=== PATIENT | female | born 1995 | race Caucasian/White ===

== ENCOUNTER → 2018-03-04 | Outpatient (CLI) | payer OTHER ==
[~2018-03-04] MED LIST: CEPH500 PO; DIPH50 PO; Hair, Skin & N1 EACH PO; IBUP800 PO; PERM5TC TOP; PRED10 PO; RXSULTRIDS PO; SULTRIDS PO; Verotin-Gr Cap1 EACH PO
== END | disposition home or self-care (01) ==
LOC: LAB EV 15:55 → LAB SHORT 15:55
DX: N12 Tubulo-interstitial nephritis, not specified as acute or chronic (principal)
CPT/HCPCS: 87077; 87086; 87186

== ENCOUNTER 2018-04-15 01:56 | Emergency (ER) | payer OTHER ==
[~2018-04-15] VITALS: Ht 160 cm; Wt 63.5 kg
[2018-04-15 02:30] LABS: Source, Urine Clean Catch
[2018-04-15 02:43] LABS: Bilirubin, Urine Neg (Neg); Blood, Urine 5+ (Neg); Glucose Qualitative, Urine Neg (Neg); Ketones, Urine Neg (Neg); Leukocyte Esterase, Urine 3+ (Neg); Nitrite, Urine Neg (Neg); Protein, Urine 3+ (Neg); Specific Gravity, Urine 1.025 (1.003-1.022); Urobilinogen, Urine 2+ (Normal)
[2018-04-15 02:48] LABS: Appearance, Urine Cloudy (Clear); Color, Urine Yellow (P-Yellow)
[2018-04-15 02:50] LABS: Amorphous Mod (0-Heavy); Bacteria Many /hpf; Red Blood Cells, Urine 0-2 /hpf (0-2); Squamous Epithelial Cells Mod /hpf (Few); White Blood Cells, Urine 50-100 /hpf (0-5)
[2018-04-15] MEDS ORDERED: CEPH500 PO (03:46)
== END 2018-04-15 03:55 | disposition home or self-care (01) ==
LOC: ER 01:56
PROVIDERS: Emergency Medicine
DX: N12 Tubulo-interstitial nephritis, not specified as acute or chronic (principal); R55 Syncope and collapse; F17.210 Nicotine dependence, cigarettes, uncomplicated; Z79.899 Other long term (current) drug therapy
CPT/HCPCS: 81001; 81025; 87077; 87086; 87186; 93005; 93010; 99284-25

== ENCOUNTER 2019-05-27 14:54 | Emergency (ER) | payer OTHER ==
[~2019-05-27] VITALS: Ht 157.5 cm; Wt 68.0 kg
== END 2019-05-27 15:09 | disposition home or self-care (01) ==
LOC: ER 14:54
DX: R11.2 Nausea with vomiting, unspecified (principal)
CPT/HCPCS: 99281

== ENCOUNTER 2019-09-25 06:24 | Day surgery (SDC) | payer OTHER ==
[~2019-09-25] VITALS: Ht 157.5 cm; Wt 67.1 kg
[~2019-09-25 06:24] MED LIST changes: +DOXYLAMINE-PYR1 EAC1 PO; +PRENATAL TABLE1 EAC2 PO; +PROM25 PO
--- NOTE | 2019-09-25 07:12 | NUR ---
Ambulatory in Day Surgery History, Chart, Medications and Allergies reviewed before start of procedure. Lungs clear T/O to Auscultation. Patient confirms NPO status and agrees with scheduled surgery. Pre-Op teaching done. Pt verbalizes understanding.
--- NOTE | 2019-09-25 07:15 | NUR ---
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 SEE PROGRESS NOTE FOR INFORMATION.
--- NOTE | 2019-09-25 11:35 | NUR ---
PT UP TO BATHROOM WITH SBA; TOLERATED WELL.
--- NOTE | 2019-09-25 11:52 | NUR ---
Patient up to Ambulate independently. Gait steady. Dressing to procedure site clean, dry, intact with no visible drainage, swelling, erythema or bruising noted. X3 sites. Discharge instructions reviewed with patient. Patient verbalizes understanding. Copy given to patient to take home. Patient States Post-Procedure ride home has been arranged. Discharged via wheelchair to private car for ride home.
--- NOTE | 2019-09-27 10:19 | NUR ---
09/27/19 1019 Lilliana Simmons VERIFICATIONS: EDIT CHART.
== END 2019-09-25 11:44 | disposition home or self-care (01) ==
LOC: ORSCMMR 06:24 → ORD 07:30 → ORSCMMR 07:30
PROVIDERS: Surgery
PROC: BF121ZZ Fluoroscopy of Gallbladder using Low Osmolar Contrast (ICD-10-PCS; principal; 2019-09-25 07:30)
PROC: 0FT44ZZ Resection of Gallbladder, Percutaneous Endoscopic Approach (ICD-10-PCS; principal; 2019-09-25 07:30)
DX: K80.12 Calculus of gallbladder with acute and chronic cholecystitis without obstruction (principal); Z34.81 Encounter for supervision of other normal pregnancy, first trimester
CPT/HCPCS: 88304; C1894; J0690; J1100; J2270; J2405; J2704; J3010; J7120

== ENCOUNTER 2020-04-03 07:25 | Inpatient (IN) | payer OTHER ==
[~2020-04-03] VITALS: Ht 157.5 cm; Wt 81.1 kg
[2020-04-03 08:08] LABS: BASOPHILS ABSOLUTE AUTO 0.06 K/mm3 (0.00-0.23); BASOPHILS PERCENT AUTO 0 % (0-2); EOSINOPHILS ABSOLUTE AUTO 0.07 K/mm3 (0.00-0.68); EOSINOPHILS PERCENT AUTO 0 % (0-6); Hemoglobin 12.3 g/dL (11.5-16.0); IMMATURE GRAN ABSOLUTE AUTO 0.46 K/mm3 (0.00-0.10); IMMATURE GRAN PERCENT AUTO 3 % (0-1); LYMPHOCYTES ABSOLUTE AUTO 4.01 K/mm3 (0.84-5.20); LYMPHOCYTES PERCENT AUTO 25 % (21-46); MONOCYTES ABSOLUTE AUTO 0.95 K/mm3 (0.16-1.47); MONOCYTES PERCENT AUTO 6 % (4-13); Mean Corpuscular HGB 31.2 pg (26.0-34.0); Mean Corpuscular HGB Conc 33.2 g/dL (31.5-36.5); Mean Corpuscular Volume 94 fL (80-100); Mean Platelet Volume 11.9 fL (9.1-12.4); NEUTROPHILS ABSOLUTE AUTO 10.32 K/mm3 (1.96-9.15); NEUTROPHILS PERCENT AUTO 65 % (41-73); NRBC ABSOLUTE 0.02 K/mm3 (0.00-0.02); NRBC Auto 0.1 /100 WBC (0.0-0.2); Platelet Count 218 K/mm3 (150-400); RDW Coefficient Variation 13.2 % (11.7-14.2); RDW Standard Deviation 44.9 fL (35.1-46.3); Red Blood Cell Count 3.94 M/mm3 (3.80-5.20); White Blood Cell Count 15.87 K/mm3 (4.00-11.30)
[2020-04-03 08:43] LABS: Influenza A, PCR Negative (NEGATIVE); Influenza B, PCR Negative (NEGATIVE); Resp Syncytial Virus, PCR Negative (NEGATIVE); SARS-Cov-2 (COVID-19) PCR, MMC Negative (NEGATIVE)
[2020-04-03 09:03] LABS: U Amphetamine Screen Not Detected; U Barbituate Screen Not Detected; U Benzodiazapine Screen Not Detected; U Buprenorphine Screen Not Detected; U Cannabinoids Screen DETECTED; U Cocaine Screen Not Detected; U Methadone Screen Not Detected; U Methamphetamine Screen Not Detected; U Opiates Screen Not Detected; U Oxycodone Screen Not Detected; U Phencyclidine Screen Not Detected; U Propoxyphene Screen Not Detected
--- NOTE | 2020-04-03 14:24 | NUR ---
PT TO SCN TO SEE NB
--- NOTE | 2020-04-03 17:44 | NUR ---
DISCHARGE INSTRUCTIONS REVIEWED AND SIGNED. DISCHARGE PAPER WORK COMPLETE. PT TO BE DISCHARGED R/T INFANT BEING TRANSPORTED TO [place]. ALL QUESTIONS ANSWERED.
--- NOTE | 2020-04-07 11:16 | NUR ---
PPFU. PT UNABLE TO COME IN FOR PPFU, DONE OVER THE PHONE. PT STATES THAT HER MILK IS IN AND SHE BOTH BREAST AND BOTTLE FEEDING NB. VAGINAL BLEEDING IS GETTING WILLOW WORKER AND IS PINK IN COLOR. DENIES HAVING ANY SWELLING IN HER EXTREMITIES. DENIES HEADACHE, BLURRED VISION, OR DIZINESS. DENIES NUMBNESS OR TINGLING IN HER LEGS AND FEET. PT HAS BEEN TAKING TYLENOL FOR PAIN AND STATES THIS HAS BEEN WORKING FOR HER PAIN. PT STATES SHE IS CALLING TO MAKE MD F/U APPOINTMENTS NEXT. FURTHER LC OFFERED. FURTHER PP ASSESSMENT OFFERED IF PT WOULD LIKE. PT SOUNDS UPBEAT AND HAPPY ON PHONE CALL.
== END 2020-04-03 17:50 | disposition home or self-care (01) | DRG 806 ==
LOC: OBS 07:25 → BC 07:29 → OBS 07:43 → BC 07:44
PROVIDERS: ADMIT Nurse Practitioner Obstetrics & Gynecology
PROC: 10E0XZZ Delivery of Products of Conception, External Approach (ICD-10-PCS; principal; 2020-04-03)
PROC: 10907ZC Drainage of Amniotic Fluid, Therapeutic from Products of Conception, Via Natural or Artificial Opening (ICD-10-PCS; 2020-04-03)
PROC: 00HU33Z Insertion of Infusion Device into Spinal Canal, Percutaneous Approach (ICD-10-PCS; 2020-04-03)
PROC: 3E0R3BZ Introduction of Anesthetic Agent into Spinal Canal, Percutaneous Approach (ICD-10-PCS; 2020-04-03)
DX: O48.0 Post-term pregnancy (principal); O99.324 Drug use complicating childbirth; Z37.0 Single live birth; F19.90 Other psychoactive substance use, unspecified, uncomplicated; Z3A.40 40 weeks gestation of pregnancy; Z20.822 Contact with and (suspected) exposure to COVID-19
CPT/HCPCS: 0241U; 36415; 85025; 86850; 86900; 86901; A9270; G0480; J1885; J2210; J2590; J7120

== ENCOUNTER 2023-09-06 08:00 | Inpatient (IN) | payer OTHER ==
[2023-09-06] VITALS (10 sets, daily range): BP systolic 108–136; BP diastolic 57–79
[~2023-09-06] VITALS: Ht 157.5 cm; Wt 85.6 kg
[~2023-09-06 08:00] MED LIST changes: +METR500; +OMEP20ER PO
[2023-09-06] MEDS ORDERED: Acetaminophen 325 MG TABLET PO PRN (09:05)
[2023-09-06] MEDS ORDERED: Ibuprofen 400 MG Tab PO PRN (09:05)
[2023-09-06] MEDS ORDERED: Misoprostol 200 MCG Tab PO PRN (09:15)
[2023-09-06] MEDS ORDERED: Methylergonovine Maleate 0.2MG / ML 1ML Amp IM PRN (09:15)
[2023-09-06] MEDS ORDERED: OxyCODONE 5 mg/Acetamin 325 mg TABLET PO PRN (09:15)
[2023-09-06] MEDS ORDERED: Lanolin Cream TOP PRN (09:15)
[2023-09-06] MEDS ORDERED: Diphth,Pertuss(Acell),Tet Vac 0.5 ML VIAL IM SCH (09:20)
[2023-09-06] MEDS ORDERED: Lactated Ringer's 1,000 ML IV SCH (09:20)
[2023-09-06] MEDS ORDERED: Docusate Sodium 100 MG Cap PO PRN (09:20)
[2023-09-06] MEDS ORDERED: Oxytocin 10 Unit / ML Vial IM ONE (09:20)
[2023-09-06] MEDS ORDERED: Benzocaine Topical Anesthetic Spray 60GM TOP PRN (09:20)
[2023-09-06] MEDS ORDERED: Witch Hazel/Glycerin PADS TOP PRN (09:20)
[2023-09-06] MEDS ORDERED: Ondansetron HCl 2 MG / ML 2ML Vial IV PRN (09:25)
[2023-09-06] MEDS ORDERED: Calcium Carbonate 500 MG Tab Chew PO PRN (09:25)
[2023-09-06] MEDS ORDERED: IBUP800 PO (15:03)
[2023-09-07] MEDS ORDERED: Prenatal Vit/FE Fumarate/FA 1 Tab PO SCH (09:00)
== END 2023-09-06 18:35 | disposition home or self-care (01) | DRG 807 ==
LOC: BC 08:00
PROVIDERS: ADMIT Advanced Practice Midwife
PROC: 10E0XZZ Delivery of Products of Conception, External Approach (ICD-10-PCS; principal; 2023-09-06)
DX: O48.0 Post-term pregnancy (principal); Z37.0 Single live birth; Z3A.40 40 weeks gestation of pregnancy; O70.0 First degree perineal laceration during delivery
CPT/HCPCS: 59414; A9270; J2590